=== PATIENT | female | born 1945 | race Caucasian/White ===

== ENCOUNTER 2017-09-14 09:56 | Inpatient (IN) | payer BC, MEDICARE ==
[~2017-09-14] VITALS: Ht 157.5 cm; Wt 145.4 kg
[~2017-09-14 09:56] MED LIST: ALBU18HF IH; ATOR40TA59 PO; CHOL4POW PO; GABA-586 PO; GLYB5TAB3 PO; HYDR-2762 PO; INSU100I27 SQ; LISI40TA PO; [UNRECOGNIZED DRUG - CODE] IV
--- NOTE | 2017-09-14 11:06 | RAD ---
EXAM: Chest, 2 views. HISTORY: Shortness of breath. COMPARISON: 04/21/2016. FINDINGS: Frontal and lateral views of the chest are obtained. There has been interval increase in small right greater than left pleural effusions and lower lobe atelectasis or infiltrate. There is stable diffuse interstitial prominence. There is stable enlargement of the cardiac silhouette. IMPRESSION: 1. Increased small right greater than left pleural effusions with lower lobe atelectasis or infiltrate. 2. Stable diffuse interstitial prominence and enlarged cardiac silhouette. Electronically signed by: Kallie Naranjo MD (09/14/2017 11:02 AM) [place] [id number]
[2017-09-14 11:44] LABS: CALCIUM 9.6 mg/dL (8.5-10.1); GFR 54.7
[2017-09-14] MEDS ORDERED: FUROSEMIDE 40 MG/4 ML VIAL IVP ONE (11:45)
[2017-09-14 11:47] LABS: POTASSIUM 4.9 mmol/L (3.5-5.1)
[2017-09-14 11:52] LABS: BASO # 0.1 x10^3/uL (0.0-0.2); BASO % 1 % (0-3); EOS % 0 % (0-3); HEMATOCRIT 39.6 % (36.0-47.0); HEMOGLOBIN 12.5 g/dL (12.0-15.5); LYMPH # 1.2 x10^3/uL (1.0-4.8); LYMPH % 10 % (24-48); MEAN CORPUSCULAR HEMOGLOBIN 30 pg (25-35); MEAN CORPUSCULAR HGB CONC 32 g/dL (31-37); MEAN CORPUSCULAR VOLUME 95 fL (79-100); MONO # 0.6 x10^3/uL (0.0-1.1); MONO % 5 % (0-9); NEUT % 84 % (31-73); PLATELET COUNT 237 x10^3/uL (140-400); RED BLOOD COUNT 4.17 x10^6/uL (3.50-5.40); RED CELL DISTRIBUTION WIDTH 15.3 % (11.5-14.5)
[2017-09-14] MEDS ORDERED: ACETAMINOPHEN 325 MG TABLET PO PRN (12:00)
[2017-09-14] MEDS ORDERED: ONDANSETRON PF 4 MG/2 ML VIAL. IV PRN (12:00)
[2017-09-14 13:11] VITALS: BP 113/79
--- NOTE | 2017-09-14 13:41 | EKG ---
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
[2017-09-14] MEDS ORDERED: FLUT1AER IH (14:14)
[2017-09-14] MEDS ORDERED: ALBU0.63 NEB (14:14)
[2017-09-14] MEDS ORDERED: FURO-69 PO (14:14)
[2017-09-14] MEDS ORDERED: DIGOXIN IV 500 MCG/2 ML AMPUL. IV ONE (14:15)
[2017-09-14] MEDS ORDERED: ALBUTEROL SULFATE 2.5 MG/3 ML NEBU. NEB PRN (14:45)
[2017-09-14 14:53] VITALS: BP 117/70
[2017-09-14 15:14] LABS: BILIRUBIN,URINE NEG (NEG); CLARITY,URINE CLEAR; COLOR,URINE YELLOW; GLUCOSE,URINE NEG (NEG)
[2017-09-14 15:15] LABS: BACTERIA,URINE 0 /HPF (0-FEW); NITRITE,URINE NEG (NEG); RBC,URINE OCC /HPF (0-2); SQUAMOUS EPITHELIAL CELL,UR FEW /LPF; UROBILINOGEN,URINE 0.2 mg/dL (0.2 mg/dL); WBC,URINE OCC /HPF (0-4)
[2017-09-14] MEDS: IPRATRPIUM/ALBUTEROL 0.5/2.5MG 3 ML NEBU. NEB SCH ×2 (15:26→21:24)
--- NOTE | 2017-09-14 15:28 | PHYS DOC ---
Past History Past Medical History: Anxiety, CHF, COPD, Diabetes, Hypertension Past Surgical History: No Surgical History Alcohol Use: None Drug Use: None Adult General Chief Complaint Chief Complaint: SHORTNESS OF BREATH HPI HPI Patient is a 71 year old F who presents with shortness of breath with exertion. Fatuma was on her way to a routine scheduled doctor's appointment this morning when she became severely short of breath after walking from her house to the car. At that time her and her decided to come to the emergency room after contacting their primary care doctor. She has had associated cough and worsening swelling of her lower extremities bilaterally. She has not been taking her Lasix regularly. She does not weigh herself regularly. She does use supplemental oxygen at baseline. It's unclear whether her shortness of breath is worsened when lying down because she sleeps in a recliner due to back pain. She has no other associated symptoms. She has no other exacerbating or relieving factors. Review of Systems Review of Systems Constitutional: Denies fever or chills [] Eyes: Denies change in visual acuity, redness, or eye pain [] HENT: Denies nasal congestion or sore throat [] Respiratory: Negative except history of present illness Cardiovascular: No additional information not addressed in HPI [] GI: Denies abdominal pain, nausea, vomiting, bloody stools or diarrhea [] : Denies dysuria or hematuria [] Musculoskeletal: Denies back pain or joint pain [] Integument: Denies rash or skin lesions [] Neurologic: Denies headache, focal weakness or sensory changes [] Endocrine: Denies polyuria or polydipsia [] All other systems were reviewed and found to be within normal limits, except as documented in this note. Family History Family History No pertinent family medical history was reported Current Medications Current Medications Current Medications Medications (Trade) Dose Ordered Sig/Romaine Start Time Stop Time Status Last Admin Dose Admin Furosemide (Lasix) 40 mg 1X ONCE 09/14/17 11:45 09/14/17 11:46 DC 09/14/17 11:40 40 MG Allergies Allergies Allergies Coded Allergies Type Severity Reaction Last Updated Verified Erythromycin Base Allergy Unknown 01/15/14 No metformin Allergy Unknown Diarrhea 01/15/14 Yes Physical Exam Physical Exam Constitutional: Well developed, well nourished, no acute distress, non-toxic appearance. [] Morbid obesity HENT: Normocephalic, atraumatic Eyes: EOMI, conjunctiva normal, no discharge. [] Neck: Normal range of motion, no tenderness, supple, no stridor. [] Cardiovascular:Heart rate regular rhythm, diminished breath sounds bilaterally Lungs & Thorax: Bilateral breath sounds clear to auscultation [] moderate pitting edema in extremities bilaterally Abdomen: Bowel sounds normal, soft, no tenderness, no masses, no pulsatile masses. [] Skin: Warm, dry, no erythema, no rash. [] Moderate dry skin and lower extremities without skin breakdown Extremities: No tenderness, no cyanosis, no clubbing, ROM intact Neurologic: Alert and oriented X 3, normal motor function, normal sensory function, no focal deficits noted. [] Psychologic: Affect normal, judgement normal, mood normal. Current Patient Data Vital Signs Vital Signs Date Time Temp Pulse Resp B/P (MAP) Pulse Ox O2 Delivery O2 Flow Rate FiO2 09/14/17 14:53 97.7 118 20 117/70 (86) 96 Nasal Cannula 2.0 Lab Results Laboratory Tests Test 09/14/17 11:24 09/14/17 14:30 White Blood Count 12.0 x10^3/uL (4.0-11.0) H Red Blood Count 4.17 x10^6/uL (3.50-5.40) Hemoglobin 12.5 g/dL (12.0-15.5) Hematocrit 39.6 % (36.0-47.0) Mean Corpuscular Volume 95 fL (79-100) Mean Corpuscular Hemoglobin 30 pg (25-35) Mean Corpuscular Hemoglobin Concent 32 g/dL (31-37) Red Cell Distribution Width 15.3 % (11.5-14.5) H Platelet Count 237 x10^3/uL (140-400) Neutrophils (%) (Auto) 84 % (31-73) H Lymphocytes (%) (Auto) 10 % (24-48) L Monocytes (%) (Auto) 5 % (0-9) Eosinophils (%) (Auto) 0 % (0-3) Basophils (%) (Auto) 1 % (0-3) Neutrophils # (Auto) 10.0 x10^3uL (1.8-7.7) H Lymphocytes # (Auto) 1.2 x10^3/uL (1.0-4.8) Monocytes # (Auto) 0.6 x10^3/uL (0.0-1.1) Eosinophils # (Auto) 0.0 x10^3/uL (0.0-0.7) Basophils # (Auto) 0.1 x10^3/uL (0.0-0.2) D-Dimer (Kayla) 0.69 mg/L (0.00-0.50) H Sodium Level 142 mmol/L (136-145) Potassium Level 4.9 mmol/L (3.5-5.1) Chloride Level 100 mmol/L (98-107) Carbon Dioxide Level 36 mmol/L (21-32) H Anion Gap 6 (6-14) Blood Urea Nitrogen 13 mg/dL (7-20) Creatinine 1.0 mg/dL (0.6-1.0) Estimated GFR (Cockcroft-Gault) 54.7 Glucose Level 209 mg/dL (70-99) H Calcium Level 9.6 mg/dL (8.5-10.1) Magnesium Level 1.9 mg/dL (1.8-2.4) Creatine Kinase 40 U/L (26-192) Troponin I Quantitative < 0.017 ng/mL (0-0.055) Urine Collection Type Unknown Urine Color Yellow Urine Clarity Clear Urine pH 5.0 Urine Specific [place] <=1.005 Urine Protein Neg (NEG-TRACE) Urine Glucose (UA) Neg mg/dL (NEG) Urine Ketones (Stick) Neg mg/dL (NEG) Urine Blood Neg (NEG) Urine Nitrite Neg (NEG) Urine Bilirubin Neg (NEG) Urine Urobilinogen Dipstick 0.2 mg/dL (0.2 mg/dL) Urine Leukocyte Esterase Neg (NEG) Urine RBC Occ /HPF (0-2) Urine WBC Occ /HPF (0-4) Urine Squamous Epithelial Cells Few /LPF Urine Bacteria 0 /HPF (0-FEW) EKG EKG Normal sinus rhythm Radiology/Procedures Radiology/Procedures Chest x-ray - moderate bilateral pleural effusions noted Course & Med Decision Making Course & Med Decision Making Pertinent Labs and Imaging studies reviewed. (See chart for details) Dr. Gregg was contacted by phone. Her case was reviewed including history, physical/vital signs, labs and imaging. Admission was recommended. Dragon Disclaimer Dragon Disclaimer This electronic medical record was generated, in whole or in part, using a voice recognition dictation system. Departure Departure: Impression: Primary Impression: Acute exacerbation of CHF (congestive heart failure) Disposition: ADMITTED INPATIENT Admitting Physician: Garrett Gregg Condition: STABLE Referrals: GARRETT GREGG MD (PCP) Problem Qualifiers Primary Impression: Acute exacerbation of CHF (congestive heart failure) Heart failure type: unspecified Qualified Codes: I50.9 - Heart failure, unspecified GARRETT DOMÍNGUEZ MD Sep 14, 2017 15:28
--- NOTE | 2017-09-14 16:16 | RAD ---
Indication: Abdominal pain when eating. TECHNIQUE: CT abdomen and pelvis without IV contrast with multiplanar reformats. COMPARISON: None FINDINGS: Limited exam due to lack of IV contrast. Heart is normal in size. Trace left and small right pleural effusion noted. Consolidation is seen in the bilateral lower lobes. Noncontrast appearance of the liver, spleen, pancreas, adrenals within normal limits. Status post cholecystectomy. Multiple nonobstructing right renal stones noted. No hydronephrosis. No retroperitoneal or pelvic adenopathy. No sliding hiatal hernia. No bowel obstruction. Mild sigmoid diverticulosis without diverticulitis. Normal appendix. Inflammatory changes are seen in the abdominal pannus. Bladder is decompressed however shows no radiopaque stone. Status post hysterectomy. No solid adnexal lesions. No ascites or free pelvic fluid. Mild diffuse atherosclerotic disease of the abdominal aorta noted. No suspicious bony lesion. IMPRESSION: Limited study due to lack of IV contrast. 1. No hernia or bowel obstruction. 2. Multiple nonobstructing right renal stone. 3. Small right pleural effusion. Bilateral lower lobe consolidative opacities may be from subsegmental atelectasis or pneumonia. 4. Inflammatory changes in the lower abdominal wall pannus may suggest panniculitis. Clinically correlate. Electronically signed by: Elmer Cunningham DO (09/14/2017 4:13 PM) [id number]
--- NOTE | 2017-09-14 17:25 | CARD ---
MR#: [id number] Date of Study: 09/14/2017 Ordering Physician: GARRETT FLOWERS, Referring Physician: GARRETT FLOWERS, Tech: Cyndi Corbett ZOIE APPROVED REPORT EXAM: Two-dimensional and M-mode echocardiogram with Doppler and color Doppler. Other Information Quality : Good INDICATION Congestive Heart Failure 2D DIMENSIONS RVDd2.9 (2.9-3.5cm)Left Atrium(2D)4.6 (1.6-4.0cm) IVSd1.1 (0.7-1.1cm)Aortic Root(2D)2.9 (2.0-3.7cm) LVDd5.0 (3.9-5.9cm)LVOT Diameter2.3 (1.8-2.4cm) PWd1.1 (0.7-1.1cm)LVDs3.7 (2.5-4.0cm) FS (%) 25.9 %SV60.4 ml LVEF(%)50.6 (>50%) Aortic Valve AoV Peak Syd.113.2cm/sAoV VTI17.3cm AO Peak GR.5.1mmHgLVOT Peak Syd.122.2cm/s LVOT VTI 21.09cmAO Mean GR.3mmHg MAYRA (VMAX)4.43jp5CUX (VTI)4.92cm2 Mitral Valve MV E Yusdoudf517.7cm/sMV DECEL HVMB205ru MV A Velocity1.1cm/sE/A Ratio92.5 Tricuspid Valve TR P. Eeilyoya902wf/sRAP [id number] TR Peak Gr.91jkMfIPPQ59qlTo LEFT VENTRICLE The left ventricle is normal size. There is normal left ventricular wall thickness. Mild left ventric ular systolic dysfunction. The Ejection Fraction is 45%. There is normal LV segmental wall motion. RIGHT VENTRICLE The right ventricle is normal size. The right ventricular systolic function is normal. ATRIA The left atrium is mildly dilated. The right atrium size is normal. The interatrial septum is intact with no evidence for an atrial septal defect or patent foramen ovale as noted on 2-D or Doppler imagi ng. AORTIC VALVE The aortic valve is calcified but opens well. Doppler and Color Flow revealed no significant aortic r egurgitation. There is no significant aortic valvular stenosis. MITRAL VALVE The mitral valve is calcified but opens well. There is no evidence of mitral valve prolapse. There is no mitral valve stenosis. Doppler and Color-flow revealed mild mitral regurgitation. TRICUSPID VALVE The tricuspid valve is normal in structure and function. Doppler and Color Flow revealed mild to mode rate tricuspid regurgitation. There is moderate pulmonary hypertension. The PA pressure was estimated at 55 mmHg. There is no tricuspid valve stenosis. PULMONIC VALVE The pulmonic valve is not well visualized. Doppler and Color Flow revealed no pulmonic valvular regur gitation. There is no pulmonic valvular stenosis. GREAT VESSELS The aortic root is normal in size. The ascending aorta is normal in size. The IVC is dilated. PERICARDIAL EFFUSION There is no evidence of significant pericardial effusion. Critical Notification Critical Value: No <Conclusion> Mild left ventricular systolic dysfunction. The Ejection Fraction is 45%. There is normal LV segmental wall motion. Mild mitral regurgitation. Mild to moderate tricuspid regurgitation. There is moderate pulmonary hypertension. The PA pressure was estimated at 55 mmHg. There is no evidence of significant pericardial effusion. Signed by : Al Menon, Electronically Approved : 09/14/2017 17:25:26
[2017-09-14] MEDS: cefTRIAXone IV Push 1 GM VIAL. IVP SCH (17:39)
[2017-09-14] MEDS: glyBURIDE 5 MG TABLET PO SCH (17:39)
[2017-09-14] MEDS: ENOXAPARIN ** NOTE DOSE ** SYRINGE SQ SCH (17:40)
[2017-09-14 18:54] VITALS: BP 119/59
[2017-09-14] MEDS ORDERED: SODIUM CHLORIDE 0.65% NASAL SPRAY 45ML BOTTLE. NS PRN (20:15)
[2017-09-14] MEDS: LACTOBACILLUS RHAMNOSUS GG 1 CAPSULE. PO SCH (21:05)
[2017-09-14] MEDS: GABAPENTIN 300 MG CAPSULE. PO SCH (21:05)
[2017-09-14] MEDS: ATORVASTATIN CALCIUM 20 MG TABLET PO SCH (21:05)
[2017-09-14] MEDS: AZITHROMYCIN 500 MG in IV NORMAL SALINE 250ML 250 ML IV SCH (21:05)
[2017-09-14] MEDS: BUDESONIDE 0.5 MG/2 ML NEBU NEB SCH (21:24)
[2017-09-14] MEDS: INSULIN DETEMIR 300 UNITS/3 ML INSULN.PEN. SQ SCH (21:30)
[2017-09-14 22:45] VITALS: BP 102/65
[2017-09-15] MEDS ORDERED: IOHEXOL 300 MG/ML 75 ML VIAL. IV ONE ×2 (03:00→08:45)
[2017-09-15] MEDS ORDERED: CONTRAST GIVEN MC PRN (03:15)
[2017-09-15 05:00] VITALS: BP 125/82
[2017-09-15] MEDS: ENOXAPARIN ** NOTE DOSE ** SYRINGE SQ SCH ×2 (06:02→16:34)
[2017-09-15] MEDS: IPRATRPIUM/ALBUTEROL 0.5/2.5MG 3 ML NEBU. NEB SCH ×4 (06:04→20:29)
[2017-09-15 06:55] LABS: BASO # 0.1 x10^3/uL (0.0-0.2); BASO % 1 % (0-3); EOS # 0.1 x10^3/uL (0.0-0.7); EOS % 1 % (0-3); HEMATOCRIT 38.5 % (36.0-47.0); HEMOGLOBIN 12.2 g/dL (12.0-15.5); LYMPH # 1.6 x10^3/uL (1.0-4.8); LYMPH % 15 % (24-48); MEAN CORPUSCULAR HEMOGLOBIN 30 pg (25-35); MEAN CORPUSCULAR HGB CONC 32 g/dL (31-37); MEAN CORPUSCULAR VOLUME 94 fL (79-100); MONO # 0.7 x10^3/uL (0.0-1.1); MONO % 7 % (0-9); NEUT # 8.2 x10^3uL (1.8-7.7); NEUT % 77 % (31-73); PLATELET COUNT 237 x10^3/uL (140-400); RED BLOOD COUNT 4.08 x10^6/uL (3.50-5.40); RED CELL DISTRIBUTION WIDTH 15.2 % (11.5-14.5); WHITE BLOOD COUNT 10.7 x10^3/uL (4.0-11.0)
[2017-09-15 07:01] LABS: CALCIUM 9.5 mg/dL (8.5-10.1); CREATININE 0.9 mg/dL (0.6-1.0); GFR 61.7; POTASSIUM 3.5 mmol/L (3.5-5.1)
--- NOTE | 2017-09-15 07:13 | EKG ---
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
[2017-09-15 07:27] VITALS: BP 107/55
[2017-09-15] MEDS ORDERED: DIGOXIN IV 500 MCG/2 ML AMPUL. IV ONE (08:00)
[2017-09-15] MEDS: FUROSEMIDE 40 MG/4 ML VIAL IVP SCH (08:16)
[2017-09-15] MEDS: LACTOBACILLUS RHAMNOSUS GG 1 CAPSULE. PO SCH ×2 (08:16→20:47)
[2017-09-15] MEDS: predniSONE 20 MG TABLET PO SCH (08:16)
[2017-09-15] MEDS: GABAPENTIN 300 MG CAPSULE. PO SCH ×2 (08:16→20:47)
[2017-09-15] MEDS: glyBURIDE 5 MG TABLET PO SCH ×2 (08:16→16:34)
[2017-09-15] MEDS: CHOLESTYRAMINE/ASPARTAME 4 GM PACKET PO SCH ×2 (08:16→08:19)
[2017-09-15] MEDS ORDERED: LISINOPRIL 20 MG TABLET PO SCH (09:00)
[2017-09-15] MEDS: METOPROLOL TART IMMED RELEASE 25 MG TABLET PO SCH ×4 (09:45→23:45)
--- NOTE | 2017-09-15 09:46 | PDOC2 ---
CONSULT Date of Admission DATE: 09/15/17 TIME: 09:12 Reason for Consult: atrial fibrillation with RVR, chf History of Present Illness Ms Olmstead is a 71 year old female who presented with complaints of increased dyspnea. She was noted to be in atrial fibrillation with RVR so consult was called. She reports increasing dyspnea over the last 1 month with normal activities. She normally wears oxygen at 2 liters but over the last 2 weeks has gradually increased her home O2 to 5 liters. She normally sleeps in a recliner due to back pain so is unable to report any orthopnea symptoms. She was walking out to her car yesterday and became severely short of breath after 20 feet. She had an appointment with her PCP but due to the severity of her shortness of breath her brought her to the ED. She was found to be in atrial fibrillation with heart rates in the 150s but denies any palpitations. She reports increased edema over the last several weeks. The ED documentations notes that she had not been taking her lasix as prescribed. She denies chest pain or discomforts. She denies lightheadedness or syncope. She denies cough, fever or chills. Past Medical History Echo 2016 LVEF 50-55% Mild LVH Mild MR and TR PAS 48 mmHg MPI 2016 no evidence of ischemia or infarct EF 50% Cardiovascular: CHF, HTN, hyperipidemia, Other (peripheral vascular disease) Pulmonary: Asthma, COPD CENTRAL NERVOUS SYSTEM: Periperal neuropathy GI: Irritable bowel disease Musculoskeletal: Osteoarthritis, Other (back pain) Endocrine: Diabetes Dermatology: Other (skin cancer) Past Surgical History skin cancer removal, hysterectomy, tonsillectomy Family History unknown Social History prior smoker, quit >10 years ago, no significant ETOH, no illicit drug use Current Medications Current Medications Furosemide (Lasix) 40 mg 1X ONCE IVP Last administered on 09/14/17at 11:40; Start 09/14/17 at 11:45; Stop 09/14/17 at 11:46; Status DC Ondansetron HCl (Zofran) 4 mg PRN Q4HRS PRN IV NAUSEA/VOMITING; Start 09/14/17 at 12:00; Stop 09/15/17 at 11:59 Acetaminophen (Tylenol) 650 mg PRN Q4HRS PRN PO FEVER; Start 09/14/17 at 12:00 ; Stop 09/15/17 at 11:59 Albuterol/ Ipratropium (Duoneb) 3 ml RTQID NEB Last administered on 09/15/17 06:04; Start 09/14/17 at 16:00 Furosemide (Lasix) 40 mg DAILY IVP Last administered on 09/15/17at 08:16; Start 09/15/17 at 09:00 Digoxin (Lanoxin) 500 mcg 1X ONCE IV Last administered on 09/14/17at 14:19; Start 09/14/17 at 14:15; Stop 09/14/17 at 14:16; Status DC Cholestyramine Resin (Questran Light) 4 gm DAILY PO ; Start 09/15/17 at 09:00 Gabapentin (Neurontin) 300 mg BID PO Last administered on 09/15/17at 08:16; Start 09/14/17 at 21:00 Glyburide (Diabeta) 10 mg BIDWMEALS PO Last administered on 09/15/17at 08:16; Start 09/14/17 at 17:00 Insulin Detemir (Levemir) 25 units HS SQ Last administered on 09/14/17at 21:30; Start 09/14/17 at 21:00 Albuterol Sulfate (Ventolin) 2.5 mg PRN Q4HRS PRN NEB SHORTNESS OF BREATH; Start 09/14/17 at 14:45 Atorvastatin Calcium (Lipitor) 40 mg QHS PO Last administered on 09/14/17at 21: 05; Start 09/14/17 at 21:00 Budesonide (Pulmicort) 0.5 mg RTBID NEB Last administered on 09/14/17at 21:24; Start 09/14/17 at 20:00 Lisinopril (Prinivil) 40 mg DAILY PO ; Start 09/15/17 at 09:00 Ceftriaxone Sodium 1 gm/ Sodium Chloride 50 ml @ 100 mls/hr Q24H IV ; Start at 14:45; Status UNV Ceftriaxone Sodium (Rocephin) 1 gm Q24H IVP Last administered on 09/14/17at 17: 39; Start 09/14/17 at 15:00 Enoxaparin Sodium (Lovenox 150mg Syringe) 150 mg Q12H SQ Last administered on at 06:02; Start 09/14/17 at 17:00 Azithromycin 500 mg/Sodium Chloride 250 ml @ 250 mls/hr Q24H IV Last administered on 09/14/17at 21:05; Start 09/14/17 at 19:30 Prednisone (Prednisone) 20 mg DAILY PO Last administered on 09/15/17at 08:16; Start 09/15/17 at 09:00 Lactobacillus Rhamnosus (Culturelle) 1 cap BID PO Last administered on at 08:16; Start 09/14/17 at 21:00 Sodium Chloride (Saline Mist Nasal) 1 mario PRN Q1HR PRN NS NASAL CONGESTION Last administered on 09/14/17at 21:03; Start 09/14/17 at 20:15 Iohexol (Omnipaque 300 Mg/ml) 75 ml 1X ONCE IV Last administered on 09/15/17at 05:17; Start 09/15/17 at 03:00; Stop 09/15/17 at 03:41; Status DC Info (Do NOT chart on this entry -- for MONITORING) 1 each PRN DAILY PRN MC SEE COMMENTS; Start 09/15/17 at 03:15; Stop 09/17/17 at 03:14 Digoxin (Lanoxin) 500 mcg 1X ONCE IV Last administered on 09/15/17at 07:56; Start 09/15/17 at 08:00; Stop 09/15/17 at 08:02; Status DC Iohexol (Omnipaque 300 Mg/ml) 75 ml 1X ONCE IV ; Start 09/15/17 at 08:45; Stop 09/15/17 at 08:46; Status DC Active Scripts Active Reported Breo Ellipta 100-25 Mcg Inh (Fluticasone/Vilanterol) 1 Each Aer.pow.ba 1 Puff IH DAILY LAST DOSE GIVEN: DATE: TIME: NEXT DOSE DUE: DATE: TIME: Albuterol Sulfate Neb Soln (Albuterol Sulfate) 0.63 Mg/3 Ml Vial.neb 1 Vial NEB Q4HRS PRN LAST DOSE GIVEN: DATE: TIME: NEXT DOSE DUE: DATE: TIME: Lasix (Furosemide) 20 Mg Tablet 1 Tab PO DAILY LAST DOSE GIVEN: DATE: TIME: NEXT DOSE DUE: DATE: TIME: Levemir Flextouch (Insulin Detemir) 100 Unit/1 Ml Insuln.pen 25 Unit SQ HS LAST DOSE GIVEN: DATE: TIME: NEXT DOSE DUE: DATE: TIME: Gabapentin 300 Mg Capsule 300 Mg PO BID LAST DOSE GIVEN: DATE: TIME: NEXT DOSE DUE: DATE: TIME: Lisinopril 40 Mg Tablet 40 Mg PO DAILY LAST DOSE GIVEN: DATE: TIME: NEXT DOSE DUE: DATE: TIME: Atorvastatin Calcium 40 Mg Tablet 40 Mg PO QHS LAST DOSE GIVEN: DATE: TIME: NEXT DOSE DUE: DATE: TIME: Glyburide 5 Mg Tablet 10 Mg PO BIDWMEALS LAST DOSE GIVEN: DATE: TIME: NEXT DOSE DUE: DATE: TIME: Cholestyramine Light Packet (Cholestyramine/Aspartame) 4 Gm Powd.pack 4 Gm PO DAILY LAST DOSE GIVEN: DATE: TIME: NEXT DOSE DUE: DATE: TIME: Allergies: Coded Allergies: erythromycin base (Unverified Allergy, Unknown, 01/15/14) metformin (Verified Allergy, Unknown, Diarrhea, 01/15/14) Review of System as per HPI or negative General: Alert, Oriented X3, Cooperative, No acute distress HEENT: Atraumatic, EOMI Lungs: Other (decreased with few basilar crackles bilaterally) Heart: Other (Irregular rate and rhythm, no S3/S4, no significant M/C/R) Abdomen: Normal bowel sounds, Soft, Other (obese) Extremities: Other (chronic edema bilaterally, currently left > right, skin changes consistent with chronic venous insufficiency) Neuro: Normal speech Psych/Mental Status: Mental status NL, Mood NL VITALS Vital Signs Date Time Temp Pulse Resp B/P (MAP) Pulse Ox O2 Delivery O2 Flow Rate FiO2 09/15/17 07:56 123 107/55 09/15/17 07:27 20 93 Nasal Cannula 2.0 09/15/17 05:00 97.6 Labs Laboratory Tests Test 09/14/17 11:24 09/14/17 14:30 09/14/17 16:28 09/14/17 20:24 White Blood Count 12.0 x10^3/uL (4.0-11.0) Red Blood Count 4.17 x10^6/uL (3.50-5.40) Hemoglobin 12.5 g/dL (12.0-15.5) Hematocrit 39.6 % (36.0-47.0) Mean Corpuscular Volume 95 fL (79-100) Mean Corpuscular Hemoglobin 30 pg (25-35) Mean Corpuscular Hemoglobin Concent 32 g/dL (31-37) Red Cell Distribution Width 15.3 % (11.5-14.5) Platelet Count 237 x10^3/uL (140-400) Neutrophils (%) (Auto) 84 % (31-73) Lymphocytes (%) (Auto) 10 % (24-48) Monocytes (%) (Auto) 5 % (0-9) Eosinophils (%) (Auto) 0 % (0-3) Basophils (%) (Auto) 1 % (0-3) Neutrophils # (Auto) 10.0 x10^3uL (1.8-7.7) Lymphocytes # (Auto) 1.2 x10^3/uL (1.0-4.8) Monocytes # (Auto) 0.6 x10^3/uL (0.0-1.1) Eosinophils # (Auto) 0.0 x10^3/uL (0.0-0.7) Basophils # (Auto) 0.1 x10^3/uL (0.0-0.2) D-Dimer (Kayla) 0.69 mg/L (0.00-0.50) Sodium Level 142 mmol/L (136-145) Potassium Level 4.9 mmol/L (3.5-5.1) Chloride Level 100 mmol/L (98-107) Carbon Dioxide Level 36 mmol/L (21-32) Anion Gap 6 (6-14) Blood Urea Nitrogen 13 mg/dL (7-20) Creatinine 1.0 mg/dL (0.6-1.0) Estimated GFR (Cockcroft-Gault) 54.7 Glucose Level 209 mg/dL (70-99) Calcium Level 9.6 mg/dL (8.5-10.1) Magnesium Level 1.9 mg/dL (1.8-2.4) Creatine Kinase 40 U/L (26-192) Troponin I Quantitative < 0.017 ng/mL (0-0.055) Urine Collection Type Unknown Urine Color Yellow Urine Clarity Clear Urine pH 5.0 Urine Specific [place] <=1.005 Urine Protein Neg (NEG-TRACE) Urine Glucose (UA) Neg mg/dL (NEG) Urine Ketones (Stick) Neg mg/dL (NEG) Urine Blood Neg (NEG) Urine Nitrite Neg (NEG) Urine Bilirubin Neg (NEG) Urine Urobilinogen Dipstick 0.2 mg/dL (0.2 mg/dL) Urine Leukocyte Esterase Neg (NEG) Urine RBC Occ /HPF (0-2) Urine WBC Occ /HPF (0-4) Urine Squamous Epithelial Cells Few /LPF Urine Bacteria 0 /HPF (0-FEW) Glucose (Fingerstick) 131 mg/dL (70-99) 105 mg/dL (70-99) Test 09/15/17 06:30 09/15/17 06:58 White Blood Count 10.7 x10^3/uL (4.0-11.0) Red Blood Count 4.08 x10^6/uL (3.50-5.40) Hemoglobin 12.2 g/dL (12.0-15.5) Hematocrit 38.5 % (36.0-47.0) Mean Corpuscular Volume 94 fL (79-100) Mean Corpuscular Hemoglobin 30 pg (25-35) Mean Corpuscular Hemoglobin Concent 32 g/dL (31-37) Red Cell Distribution Width 15.2 % (11.5-14.5) Platelet Count 237 x10^3/uL (140-400) Neutrophils (%) (Auto) 77 % (31-73) Lymphocytes (%) (Auto) 15 % (24-48) Monocytes (%) (Auto) 7 % (0-9) Eosinophils (%) (Auto) 1 % (0-3) Basophils (%) (Auto) 1 % (0-3) Neutrophils # (Auto) 8.2 x10^3uL (1.8-7.7) Lymphocytes # (Auto) 1.6 x10^3/uL (1.0-4.8) Monocytes # (Auto) 0.7 x10^3/uL (0.0-1.1) Eosinophils # (Auto) 0.1 x10^3/uL (0.0-0.7) Basophils # (Auto) 0.1 x10^3/uL (0.0-0.2) Sodium Level 143 mmol/L (136-145) Potassium Level 3.5 mmol/L (3.5-5.1) Chloride Level 101 mmol/L (98-107) Carbon Dioxide Level 36 mmol/L (21-32) Anion Gap 6 (6-14) Blood Urea Nitrogen 11 mg/dL (7-20) Creatinine 0.9 mg/dL (0.6-1.0) Estimated GFR (Cockcroft-Gault) 61.7 Glucose Level 119 mg/dL (70-99) Calcium Level 9.5 mg/dL (8.5-10.1) Glucose (Fingerstick) 107 mg/dL (70-99) Images EKG - atrial fibrillation with occ ventricular ectopy, non specific st/t abn, no acute ischemic changes Echo 09/14/17 Mild left ventricular systolic dysfunction. The Ejection Fraction is 45%. There is normal LV segmental wall motion. Mild mitral regurgitation. Mild to moderate tricuspid regurgitation. There is moderate pulmonary hypertension. The PA pressure was estimated at 55 mmHg. There is no evidence of significant pericardial effusion. CXR - IMPRESSION: 1. Increased small right greater than left pleural effusions with lower lobe atelectasis or infiltrate. 2. Stable diffuse interstitial prominence and enlarged cardiac silhouette. CT abd IMPRESSION: Limited study due to lack of IV contrast. 1. No hernia or bowel obstruction. 2. Multiple nonobstructing right renal stone. 3. Small right pleural effusion. Bilateral lower lobe consolidative opacities may be from subsegmental atelectasis or pneumonia. 4. Inflammatory changes in the lower abdominal wall pannus may suggest panniculitis. Clinically correlate. CT chest pending Assessment/Plan 1. Acute on chronic systolic HF - continue lasix. 2. atrial fibrillation with RVR - unknown duration. likely contributing to decompensation in HF and LV function. Rate control and will need anticoagulation as [id number] = 5. After discharge suggest MCT for 1 month for af burden prior to discussion of antiarrhythmic vs ECV. would also recommend sleep study as outpatient. 3. COPD - on home o2 4. possible PNA - abx per PCP 5. hypertension - well controlled. Decrease lisinopril to allow for rate control with beta marco antonio. 6. hyperlipidemia - lipids pending, continue statin 7. diabetes mellitus - mgmt per PCP 8. CKD stage III - Cr currently normal. 9. morbid obesity Problems: AI PALENCIA APRN Sep 15, 2017 09:46
--- NOTE | 2017-09-15 09:49 | PN ---
DATE: 09/14/2017 SUBJECTIVE: The patient was admitted yesterday with dyspnea, had atrial fibrillation with RVR, has been receiving IV digoxin by Dr. Shaw, this is to help bring down her heart rate somewhat. She is still in A-fib, which is new onset. Cardiac enzymes so far have been negative. She also may have a touch of pneumonia and is receiving IV antibiotic coverage for research. PHYSICAL EXAMINATION: GENERAL: The patient is alert and oriented. LUNGS: Diminished, but clear. CARDIOVASCULAR: Regular rate and rhythm. EXTREMITIES: No clubbing, cyanosis, +1 pitting edema. NEUROLOGIC: Intact. LABORATORY DATA: Otherwise, labs are basically stable. Blood sugar elevated. IMPRESSION: Atrial fibrillation with rapid ventricular response; pneumonia, unspecified etiology, community acquired; type 2 diabetes; and morbid obesity. PLAN: continued to be monitored, continue on her anticoagulation therapy. Make further evaluation on her as indicated. GARRETT FLOWERS MD DR: LITA/lula JOB#: [id number] / [id number]
[2017-09-15 11:07] VITALS: BP 113/75
[2017-09-15] MEDS: POTASSIUM CHLORIDE 20 MEQ TABLET.ER. PO SCH (11:11)
[2017-09-15] MEDS: BUDESONIDE 0.5 MG/2 ML NEBU NEB SCH ×2 (11:44→20:29)
[2017-09-15 14:00] VITALS: BP 151/68
--- NOTE | 2017-09-15 14:55 | RAD ---
CTA chest with contrast 09/15/2017 Clinical indication: Shortness of breath. TECHNIQUE: Multiple CTA images of the chest were obtained following the intravenous and ministration of 100 mL Omnipaque 300. MIPS were obtained of the chest. *One or more of the following individualized dose reduction techniques were utilized for this examination: 1. Automated exposure control. 2. Adjustment of the mA and/or kV according to patient size. 3. Use of iterative reconstruction technique. FINDINGS: Mild cardiomegaly without pericardial effusion. Coronary artery calcifications are noted. Evaluation of the subsegmental pulmonary arterial branches is limited due to body habitus. No central or major segmental pulmonary arterial filling defect. No axillary, mediastinal or hilar lymphadenopathy. There are small bilateral pleural effusions with complete right lower lobe and partial atelectasis of the left lower lobe and right middle lobe. No pneumothorax. There are no destructive osseous lesions. Limited images of the upper abdomen: Suggestion of nodular contour to the surface of the liver. Prior cholecystectomy. IMPRESSION: 1. Limited evaluation of subsegmental pulmonary arteries due to body habitus. No central or major segmental pulmonary artery filling defect to suggest pulmonary embolism. 2. Small bilateral pleural effusions with bibasilar atelectasis. 3. Suggestion of a nodular contour to the surface of the liver which may represent chronic liver disease (cirrhosis). Clinical correlation is recommended. Electronically signed by: Nico Roberts MD (09/15/2017 2:52 PM) [id number]
[2017-09-15] MEDS: cefTRIAXone IV Push 1 GM VIAL. IVP SCH (16:29)
--- NOTE | 2017-09-15 16:40 | RAD ---
Bilateral lower extremity venous ultrasound, 09/15/2017 : History: Bilateral leg edema and redness, shortness of breath Duplex evaluation of the deep veins in the lower extremities was performed including grayscale, color-flow and spectral Doppler analysis. The femoral and popliteal veins demonstrate normal compressibility and normal responses to distal augmentation maneuvers. Color imaging of those vessels shows no evidence of intraluminal clot. The visualized deep veins in both calves are patent. IMPRESSION: There is no sonographic evidence of deep vein thrombosis in either lower extremity.
[2017-09-15 18:26] VITALS: BP 143/66
[2017-09-15] MEDS: AZITHROMYCIN 500 MG in IV NORMAL SALINE 250ML 250 ML IV SCH (18:27)
[2017-09-15] MEDS: ATORVASTATIN CALCIUM 20 MG TABLET PO SCH (20:47)
[2017-09-15] MEDS: INSULIN DETEMIR 300 UNITS/3 ML INSULN.PEN. SQ SCH (20:55)
[2017-09-15 23:47] VITALS: BP 111/60
[2017-09-16 03:19] VITALS: BP 109/61
[2017-09-16] MEDS: IPRATRPIUM/ALBUTEROL 0.5/2.5MG 3 ML NEBU. NEB SCH ×4 (05:16→21:43)
[2017-09-16] MEDS: METOPROLOL TART IMMED RELEASE 25 MG TABLET PO SCH ×4 (05:28→23:50)
[2017-09-16] MEDS: ENOXAPARIN ** NOTE DOSE ** SYRINGE SQ SCH ×2 (05:28→16:45)
[2017-09-16 05:47] VITALS: BP 111/59
[2017-09-16] MEDS: CHOLESTYRAMINE/ASPARTAME 4 GM PACKET PO SCH (09:00)
[2017-09-16] MEDS: FUROSEMIDE 40 MG/4 ML VIAL IVP SCH (09:23)
[2017-09-16] MEDS: glyBURIDE 5 MG TABLET PO SCH ×2 (09:24→16:44)
[2017-09-16] MEDS: GABAPENTIN 300 MG CAPSULE. PO SCH ×2 (09:24→20:05)
[2017-09-16] MEDS: POTASSIUM CHLORIDE 20 MEQ TABLET.ER. PO SCH (09:24)
[2017-09-16] MEDS: predniSONE 20 MG TABLET PO SCH (09:24)
[2017-09-16] MEDS: LACTOBACILLUS RHAMNOSUS GG 1 CAPSULE. PO SCH ×2 (09:24→20:05)
[2017-09-16] MEDS: BUDESONIDE 0.5 MG/2 ML NEBU NEB SCH ×2 (09:56→21:47)
[2017-09-16 10:16] VITALS: BP 117/70
[2017-09-16] MEDS: AZITHROMYCIN 250 MG TABLET. PO SCH (16:44)
[2017-09-16] MEDS: cefTRIAXone IV Push 1 GM VIAL. IVP SCH (16:44)
[2017-09-16 18:16] VITALS: BP 134/73
[2017-09-16] MEDS: ATORVASTATIN CALCIUM 20 MG TABLET PO SCH (20:05)
[2017-09-16] MEDS: INSULIN DETEMIR 300 UNITS/3 ML INSULN.PEN. SQ SCH (20:10)
[2017-09-16 23:52] VITALS: BP 128/62
[2017-09-17] MEDS: ENOXAPARIN ** NOTE DOSE ** SYRINGE SQ SCH (05:35)
[2017-09-17] MEDS: METOPROLOL TART IMMED RELEASE 25 MG TABLET PO SCH (05:36)
[2017-09-17] MEDS: IPRATRPIUM/ALBUTEROL 0.5/2.5MG 3 ML NEBU. NEB SCH ×4 (05:53→20:34)
[2017-09-17 06:39] LABS: CALCIUM 9.1 mg/dL (8.5-10.1); CREATININE 0.9 mg/dL (0.6-1.0); GFR 61.7; POTASSIUM 3.9 mmol/L (3.5-5.1)
[2017-09-17 06:49] LABS: HEMATOCRIT 37.5 % (36.0-47.0); HEMOGLOBIN 11.9 g/dL (12.0-15.5); RED BLOOD COUNT 3.96 x10^6/uL (3.50-5.40); RED CELL DISTRIBUTION WIDTH 15.5 % (11.5-14.5); WHITE BLOOD COUNT 8.6 x10^3/uL (4.0-11.0)
[2017-09-17 07:01] VITALS: BP 115/65
[2017-09-17] MEDS: GABAPENTIN 300 MG CAPSULE. PO SCH ×2 (08:04→20:58)
[2017-09-17] MEDS: glyBURIDE 5 MG TABLET PO SCH ×2 (08:04→17:52)
[2017-09-17] MEDS: predniSONE 20 MG TABLET PO SCH (08:04)
[2017-09-17] MEDS: POTASSIUM CHLORIDE 20 MEQ TABLET.ER. PO SCH (08:04)
[2017-09-17] MEDS: FUROSEMIDE 40 MG/4 ML VIAL IVP SCH (08:05)
[2017-09-17] MEDS: CHOLESTYRAMINE/ASPARTAME 4 GM PACKET PO SCH (09:00)
[2017-09-17] MEDS: BUDESONIDE 0.5 MG/2 ML NEBU NEB SCH ×2 (09:53→20:34)
--- NOTE | 2017-09-17 11:55 | PDOC ---
PROGRESS NOTES Assessment 1. Atrial fibrillation with rapid ventricular response: Heart rate continues to be elevated. Change metoprolol to Cardizem CD 120 mg daily and start digoxin 0.125 mg daily for better rate control. Change Lovenox Eliquis 5 mg twice daily for stroke prophylaxis. 2-D echo showed mild left ventricle systolic dysfunction with EF 45%. Plan for outpatient cardioversion after 4 weeks of therapeutic anticoagulation. 2. Acute on chronic combined systolic and diastolic heart failure: Better compensated. Change Lasix to by mouth. 3. Hypertension: Better controlled 4. Hyperlipidemia: Continue statins 5. Diabetes mellitus type 2: Treat per IM Problems: Subjective Patient feeling better. Dyspnea improved. Objective Vital Signs Date Time Temp Pulse Resp B/P (MAP) Pulse Ox O2 Delivery O2 Flow Rate FiO2 09/17/17 09:50 97 Nasal Cannula 3.0 09/17/17 07:01 97.4 91 20 115/65 (82) Intake and Output 09/17/17 07:00 Intake Total 2040 ml Output Total 1750 ml Balance 290 ml Intake Oral 2040 ml Output Urine Total 1750 ml Abdomen: Soft, No tenderness Heart: Other (heart rate is irregular) Extremities: Other (trace edema) General: Alert, Oriented X3 HEENT: Atraumatic, PERRLA Lungs: Other (bilateral basal crepitations) Psych/Mental Status: Mood NL Review of Relevant I have reviewed the following items jerica (where applicable) has been applied. Labs Laboratory Tests Test 09/15/17 16:25 09/15/17 19:21 09/16/17 07:35 09/16/17 11:25 Glucose (Fingerstick) 196 mg/dL (70-99) 220 mg/dL (70-99) 87 mg/dL (70-99) 156 mg/dL (70-99) Test 09/16/17 16:19 09/16/17 19:39 09/17/17 06:17 09/17/17 07:33 Glucose (Fingerstick) 236 mg/dL (70-99) 231 mg/dL (70-99) 100 mg/dL (70-99) White Blood Count 8.6 x10^3/uL (4.0-11.0) Red Blood Count 3.96 x10^6/uL (3.50-5.40) Hemoglobin 11.9 g/dL (12.0-15.5) Hematocrit 37.5 % (36.0-47.0) Mean Corpuscular Volume 95 fL (79-100) Mean Corpuscular Hemoglobin 30 pg (25-35) Mean Corpuscular Hemoglobin Concent 32 g/dL (31-37) Red Cell Distribution Width 15.5 % (11.5-14.5) Platelet Count 246 x10^3/uL (140-400) Sodium Level 145 mmol/L (136-145) Potassium Level 3.9 mmol/L (3.5-5.1) Chloride Level 98 mmol/L (98-107) Carbon Dioxide Level 41 mmol/L (21-32) Anion Gap 6 (6-14) Blood Urea Nitrogen 14 mg/dL (7-20) Creatinine 0.9 mg/dL (0.6-1.0) Estimated GFR (Cockcroft-Gault) 61.7 Glucose Level 97 mg/dL (70-99) Calcium Level 9.1 mg/dL (8.5-10.1) Test 09/17/17 11:29 Glucose (Fingerstick) 238 mg/dL (70-99) Microbiology 09/14/17 Urine Culture - Final, Complete 09/14/17 Urine Culture Result 1 (ANITA) - Final, Complete Medications Current Medications Furosemide (Lasix) 40 mg 1X ONCE IVP Last administered on 09/14/17at 11:40; Start 09/14/17 at 11:45; Stop 09/14/17 at 11:46; Status DC Ondansetron HCl (Zofran) 4 mg PRN Q4HRS PRN IV NAUSEA/VOMITING; Start 09/14/17 at 12:00; Stop 09/15/17 at 11:59; Status DC Acetaminophen (Tylenol) 650 mg PRN Q4HRS PRN PO FEVER; Start 09/14/17 at 12:00 ; Stop 09/15/17 at 11:59; Status DC Albuterol/ Ipratropium (Duoneb) 3 ml RTQID NEB Last administered on 09/17/17at 09:47; Start 09/14/17 at 16:00 Furosemide (Lasix) 40 mg DAILY IVP Last administered on 09/17/17at 08:05; Start 09/15/17 at 09:00 Digoxin (Lanoxin) 500 mcg 1X ONCE IV Last administered on 09/14/17 14:19; Start 09/14/17 at 14:15; Stop 09/14/17 at 14:16; Status DC Cholestyramine Resin (Questran Light) 4 gm DAILY PO ; Start 09/15/17 at 09:00 Gabapentin (Neurontin) 300 mg BID PO Last administered on 09/17/17 08:04; Start 09/14/17 at 21:00 Glyburide (Diabeta) 10 mg BIDWMEALS PO Last administered on 09/17/17 08:04; Start 09/14/17 at 17:00 Insulin Detemir (Levemir) 25 units HS SQ Last administered on 09/16/17 20:10; Start 09/14/17 at 21:00 Albuterol Sulfate (Ventolin) 2.5 mg PRN Q4HRS PRN NEB SHORTNESS OF BREATH; Start 09/14/17 at 14:45 Atorvastatin Calcium (Lipitor) 40 mg QHS PO Last administered on 09/16/17at 20: 05; Start 09/14/17 at 21:00 Budesonide (Pulmicort) 0.5 mg RTBID NEB Last administered on 09/17/17 09:53; Start 09/14/17 at 20:00 Lisinopril (Prinivil) 40 mg DAILY PO ; Start 09/15/17 at 09:00; Status Future Hold Ceftriaxone Sodium 1 gm/ Sodium Chloride 50 ml @ 100 mls/hr Q24H IV ; Start at 14:45; Status UNV Ceftriaxone Sodium (Rocephin) 1 gm Q24H IVP Last administered on 09/16/17at 16: 44; Start 09/14/17 at 15:00 Enoxaparin Sodium (Lovenox 150mg Syringe) 150 mg Q12H SQ Last administered on 05:35; Start 09/14/17 at 17:00 Azithromycin 500 mg/Sodium Chloride 250 ml @ 250 mls/hr Q24H IV Last administered on 09/15/17at 18:27; Start 09/14/17 at 19:30; Stop 09/16/17 at 09:54 ; Status DC Prednisone (Prednisone) 20 mg DAILY PO Last administered on 09/17/17at 08:04; Start 09/15/17 at 09:00 Lactobacillus Rhamnosus (Culturelle) 1 cap BID PO Last administered on at 20:05; Start 09/14/17 at 21:00 Sodium Chloride (Saline Mist Nasal) 1 mario PRN Q1HR PRN NS NASAL CONGESTION Last administered on 09/14/17at 21:03; Start 09/14/17 at 20:15 Iohexol (Omnipaque 300 Mg/ml) 75 ml 1X ONCE IV Last administered on 09/15/17at 05:17; Start 09/15/17 at 03:00; Stop 09/15/17 at 03:41; Status DC Info (Do NOT chart on this entry -- for MONITORING) 1 each PRN DAILY PRN MC SEE COMMENTS; Start 09/15/17 at 03:15; Stop 09/17/17 at 03:15; Status DC Digoxin (Lanoxin) 500 mcg 1X ONCE IV Last administered on 09/15/17at 07:56; Start 09/15/17 at 08:00; Stop 09/15/17 at 08:02; Status DC Iohexol (Omnipaque 300 Mg/ml) 75 ml 1X ONCE IV ; Start 09/15/17 at 08:45; Stop 09/15/17 at 08:46; Status DC Metoprolol Tartrate (Lopressor) 12.5 mg Q6HRS PO Last administered on at 05:36; Start 09/15/17 at 09:40 Potassium Chloride (Klor-Con) 20 meq DAILYWBKFT PO Last administered on at 08:04; Start 09/15/17 at 09:45 Azithromycin (Zithromax) 500 mg DAILYWSUP PO Last administered on 09/16/17at 16: 44; Start 09/16/17 at 17:00 Active Scripts Active Reported Breo Ellipta 100-25 Mcg Inh (Fluticasone/Vilanterol) 1 Each Aer.pow.ba 1 Puff IH DAILY LAST DOSE GIVEN: DATE: TIME: NEXT DOSE DUE: DATE: TIME: Albuterol Sulfate Neb Soln (Albuterol Sulfate) 0.63 Mg/3 Ml Vial.neb 1 Vial NEB Q4HRS PRN LAST DOSE GIVEN: DATE: TIME: NEXT DOSE DUE: DATE: TIME: Lasix (Furosemide) 20 Mg Tablet 1 Tab PO DAILY LAST DOSE GIVEN: DATE: TIME: NEXT DOSE DUE: DATE: TIME: Levemir Flextouch (Insulin Detemir) 100 Unit/1 Ml Insuln.pen 25 Unit SQ HS LAST DOSE GIVEN: DATE: TIME: NEXT DOSE DUE: DATE: TIME: Gabapentin 300 Mg Capsule 300 Mg PO BID LAST DOSE GIVEN: DATE: TIME: NEXT DOSE DUE: DATE: TIME: Lisinopril 40 Mg Tablet 40 Mg PO DAILY LAST DOSE GIVEN: DATE: TIME: NEXT DOSE DUE: DATE: TIME: Atorvastatin Calcium 40 Mg Tablet 40 Mg PO QHS LAST DOSE GIVEN: DATE: TIME: NEXT DOSE DUE: DATE: TIME: Glyburide 5 Mg Tablet 10 Mg PO BIDWMEALS LAST DOSE GIVEN: DATE: TIME: NEXT DOSE DUE: DATE: TIME: Cholestyramine Light Packet (Cholestyramine/Aspartame) 4 Gm Powd.pack 4 Gm PO DAILY LAST DOSE GIVEN: DATE: TIME: NEXT DOSE DUE: DATE: TIME: Vitals/I & O Vital Sign - Last 24 Hours 09/16/17 09/16/17 09/16/17 09/16/17 12:50 15:29 18:12 18:16 Temp 97.7 Pulse 85 85 102 Resp 20 B/P (MAP) 117/70 117/70 134/73 (93) Pulse Ox 95 96 O2 Delivery Nasal Cannula Nasal Cannula O2 Flow Rate 3.0 2.0 09/16/17 09/16/17 09/16/17 09/16/17 20:00 20:41 23:50 23:52 Temp 97.8 Pulse 93 93 Resp 20 B/P (MAP) 128/62 128/62 (84) Pulse Ox 97 65 O2 Delivery Nasal Cannula Nasal Cannula Nasal Cannula O2 Flow Rate 2.0 3.5 4.0 09/17/17 09/17/17 09/17/17 09/17/17 05:36 05:42 07:01 09:50 Temp 97.4 Pulse 91 91 Resp 20 B/P (MAP) 115/65 115/65 (82) Pulse Ox 94 95 97 O2 Delivery Nasal Cannula Nasal Cannula Nasal Cannula O2 Flow Rate 3.0 2.0 3.0 Intake and Output 09/16/17 09/16/17 09/17/17 15:00 23:00 07:00 Intake Total 1320 ml 360 ml 360 ml Output Total 700 ml 500 ml 550 ml Balance 620 ml -140 ml -190 ml EDENILSON OLIVARES MD Sep 17, 2017 11:55
[2017-09-17] MEDS ORDERED: DIGOXIN IV 500 MCG/2 ML AMPUL. IV ONE (12:00)
[2017-09-17] MEDS: LACTOBACILLUS RHAMNOSUS GG 1 CAPSULE. PO SCH ×2 (12:18→20:58)
[2017-09-17 13:10] VITALS: BP 124/69
[2017-09-17 15:32] VITALS: BP 165/72
[2017-09-17] MEDS: cefTRIAXone IV Push 1 GM VIAL. IVP SCH (15:42)
[2017-09-17] MEDS: AZITHROMYCIN 250 MG TABLET. PO SCH (17:52)
[2017-09-17 19:00] VITALS: BP 129/74
[2017-09-17] MEDS: APIXABAN 5 MG TABLET. PO SCH (20:58)
[2017-09-17] MEDS: ATORVASTATIN CALCIUM 20 MG TABLET PO SCH (20:58)
[2017-09-17] MEDS: INSULIN DETEMIR 300 UNITS/3 ML INSULN.PEN. SQ SCH (21:06)
[2017-09-17 22:35] VITALS: BP 132/70
[2017-09-18] MEDS: IPRATRPIUM/ALBUTEROL 0.5/2.5MG 3 ML NEBU. NEB SCH ×2 (05:52→11:05)
[2017-09-18 05:54] LABS: BASO # 0.1 x10^3/uL (0.0-0.2); BASO % 1 % (0-3); EOS # 0.1 x10^3/uL (0.0-0.7); EOS % 1 % (0-3); HEMATOCRIT 36.9 % (36.0-47.0); HEMOGLOBIN 11.6 g/dL (12.0-15.5); LYMPH # 1.8 x10^3/uL (1.0-4.8); LYMPH % 23 % (24-48); MEAN CORPUSCULAR HEMOGLOBIN 30 pg (25-35); MEAN CORPUSCULAR HGB CONC 32 g/dL (31-37); MEAN CORPUSCULAR VOLUME 95 fL (79-100); MONO # 0.7 x10^3/uL (0.0-1.1); MONO % 9 % (0-9); NEUT # 5.2 x10^3uL (1.8-7.7); NEUT % 66 % (31-73); PLATELET COUNT 222 x10^3/uL (140-400); RED BLOOD COUNT 3.91 x10^6/uL (3.50-5.40); RED CELL DISTRIBUTION WIDTH 15.2 % (11.5-14.5); WHITE BLOOD COUNT 7.9 x10^3/uL (4.0-11.0)
[2017-09-18 06:05] LABS: ALBUMIN 2.9 g/dL (3.4-5.0); ALBUMIN/GLOBULIN RATIO 0.8 (1.0-1.7); CALCIUM 9.3 mg/dL (8.5-10.1); CREATININE 0.9 mg/dL (0.6-1.0); GFR 61.7; POTASSIUM 3.9 mmol/L (3.5-5.1); TOTAL BILIRUBIN 0.5 mg/dL (0.2-1.0); TOTAL PROTEIN 6.6 g/dL (6.4-8.2)
[2017-09-18 06:10] VITALS: BP 119/61
[2017-09-18] MEDS ORDERED: ACETAMINOPHEN 500 MG TABLET PO PRN ×2 (07:30→08:00)
[2017-09-18] MEDS: GABAPENTIN 300 MG CAPSULE. PO SCH (07:45)
[2017-09-18] MEDS: glyBURIDE 5 MG TABLET PO SCH (07:45)
[2017-09-18] MEDS: LACTOBACILLUS RHAMNOSUS GG 1 CAPSULE. PO SCH (07:46)
[2017-09-18] MEDS: APIXABAN 5 MG TABLET. PO SCH (07:46)
[2017-09-18] MEDS: POTASSIUM CHLORIDE 20 MEQ TABLET.ER. PO SCH (07:46)
[2017-09-18] MEDS: predniSONE 20 MG TABLET PO SCH (07:46)
[2017-09-18] MEDS: CHOLESTYRAMINE/ASPARTAME 4 GM PACKET PO SCH (07:49)
[2017-09-18] MEDS ORDERED: FUROSEMIDE 40 MG TABLET PO SCH (09:00)
[2017-09-18] MEDS ORDERED: DIGOXIN 125 MCG TABLET PO SCH (09:00)
--- NOTE | 2017-09-18 09:14 | PDOC ---
PROGRESS NOTES Assessment 1. Atrial fibrillation with rapid ventricular response: Rate controlled on Cardizem and digoxin. Eliquis for stroke prophylaxis. Plan for outpatient cardioversion after 4 weeks of therapeutic anticoagulation. 2. Acute on chronic combined systolic and diastolic heart failure: Compensated. Continue oral lasix. 3. Hypertension: controlled. 4. Hyperlipidemia: Continue statins 5. Diabetes mellitus type 2: Treat per IM Problems: Subjective "feeling better, ready to go home", denies chest pain, dyspnea, palpitations. Objective Vital Signs Date Time Temp Pulse Resp B/P (MAP) Pulse Ox O2 Delivery O2 Flow Rate FiO2 09/18/17 08:05 Nasal Cannula 2.0 09/18/17 07:46 91 119/61 09/18/17 06:10 97.5 20 95 Intake and Output 09/18/17 07:00 Intake Total 1270 ml Output Total 1600 ml Balance -330 ml Intake Oral 1270 ml Output Urine Total 1600 ml # Voids 2 Abdomen: Normal bowel sounds, Soft Heart: Other (irregular rate and rhythm, no gallops, clicks or rubs) Extremities: No cyanosis, Normal pulses General: Alert, Oriented X3, Cooperative, No acute distress HEENT: Atraumatic, EOMI Lungs: Other (minimally decreased bases, otherwise clear) Neuro: Normal speech Psych/Mental Status: Mental status NL, Mood NL Review of Relevant I have reviewed the following items jerica (where applicable) has been applied. Labs Laboratory Tests Test 09/16/17 11:25 09/16/17 16:19 09/16/17 19:39 09/17/17 06:17 Glucose (Fingerstick) 156 mg/dL (70-99) 236 mg/dL (70-99) 231 mg/dL (70-99) White Blood Count 8.6 x10^3/uL (4.0-11.0) Red Blood Count 3.96 x10^6/uL (3.50-5.40) Hemoglobin 11.9 g/dL (12.0-15.5) Hematocrit 37.5 % (36.0-47.0) Mean Corpuscular Volume 95 fL (79-100) Mean Corpuscular Hemoglobin 30 pg (25-35) Mean Corpuscular Hemoglobin Concent 32 g/dL (31-37) Red Cell Distribution Width 15.5 % (11.5-14.5) Platelet Count 246 x10^3/uL (140-400) Sodium Level 145 mmol/L (136-145) Potassium Level 3.9 mmol/L (3.5-5.1) Chloride Level 98 mmol/L (98-107) Carbon Dioxide Level 41 mmol/L (21-32) Anion Gap 6 (6-14) Blood Urea Nitrogen 14 mg/dL (7-20) Creatinine 0.9 mg/dL (0.6-1.0) Estimated GFR (Cockcroft-Gault) 61.7 Glucose Level 97 mg/dL (70-99) Calcium Level 9.1 mg/dL (8.5-10.1) Test 09/17/17 07:33 09/17/17 11:29 09/17/17 16:21 09/17/17 20:12 Glucose (Fingerstick) 100 mg/dL (70-99) 238 mg/dL (70-99) 243 mg/dL (70-99) 209 mg/dL (70-99) Test 09/18/17 05:42 09/18/17 07:31 White Blood Count 7.9 x10^3/uL (4.0-11.0) Red Blood Count 3.91 x10^6/uL (3.50-5.40) Hemoglobin 11.6 g/dL (12.0-15.5) Hematocrit 36.9 % (36.0-47.0) Mean Corpuscular Volume 95 fL (79-100) Mean Corpuscular Hemoglobin 30 pg (25-35) Mean Corpuscular Hemoglobin Concent 32 g/dL (31-37) Red Cell Distribution Width 15.2 % (11.5-14.5) Platelet Count 222 x10^3/uL (140-400) Neutrophils (%) (Auto) 66 % (31-73) Lymphocytes (%) (Auto) 23 % (24-48) Monocytes (%) (Auto) 9 % (0-9) Eosinophils (%) (Auto) 1 % (0-3) Basophils (%) (Auto) 1 % (0-3) Neutrophils # (Auto) 5.2 x10^3uL (1.8-7.7) Lymphocytes # (Auto) 1.8 x10^3/uL (1.0-4.8) Monocytes # (Auto) 0.7 x10^3/uL (0.0-1.1) Eosinophils # (Auto) 0.1 x10^3/uL (0.0-0.7) Basophils # (Auto) 0.1 x10^3/uL (0.0-0.2) Sodium Level 145 mmol/L (136-145) Potassium Level 3.9 mmol/L (3.5-5.1) Chloride Level 101 mmol/L (98-107) Carbon Dioxide Level 41 mmol/L (21-32) Anion Gap 3 (6-14) Blood Urea Nitrogen 15 mg/dL (7-20) Creatinine 0.9 mg/dL (0.6-1.0) Estimated GFR (Cockcroft-Gault) 61.7 BUN/Creatinine Ratio 17 (6-20) Glucose Level 94 mg/dL (70-99) Calcium Level 9.3 mg/dL (8.5-10.1) Total Bilirubin 0.5 mg/dL (0.2-1.0) Aspartate Amino Transf (AST/SGOT) 17 U/L (15-37) Alanine Aminotransferase (ALT/SGPT) 18 U/L (14-59) Alkaline Phosphatase 92 U/L (46-116) Total Protein 6.6 g/dL (6.4-8.2) Albumin 2.9 g/dL (3.4-5.0) Albumin/Globulin Ratio 0.8 (1.0-1.7) Glucose (Fingerstick) 80 mg/dL (70-99) Microbiology 09/14/17 Urine Culture - Final, Complete 09/14/17 Urine Culture Result 1 (ANITA) - Final, Complete Medications Current Medications Furosemide (Lasix) 40 mg 1X ONCE IVP Last administered on 09/14/17at 11:40; Start 09/14/17 at 11:45; Stop 09/14/17 at 11:46; Status DC Ondansetron HCl (Zofran) 4 mg PRN Q4HRS PRN IV NAUSEA/VOMITING; Start 09/14/17 at 12:00; Stop 09/15/17 at 11:59; Status DC Acetaminophen (Tylenol) 650 mg PRN Q4HRS PRN PO FEVER; Start 09/14/17 at 12:00 ; Stop 09/15/17 at 11:59; Status DC Albuterol/ Ipratropium (Duoneb) 3 ml RTQID NEB Last administered on 09/18/17 05:52; Start 09/14/17 at 16:00 Furosemide (Lasix) 40 mg DAILY IVP Last administered on 09/17/17at 08:05; Start 09/15/17 at 09:00; Stop 09/17/17 at 12:00; Status DC Digoxin (Lanoxin) 500 mcg 1X ONCE IV Last administered on 09/14/17at 14:19; Start 09/14/17 at 14:15; Stop 09/14/17 at 14:16; Status DC Cholestyramine Resin (Questran Light) 4 gm DAILY PO ; Start 09/15/17 at 09:00 Gabapentin (Neurontin) 300 mg BID PO Last administered on 09/18/17at 07:45; Start 09/14/17 at 21:00 Glyburide (Diabeta) 10 mg BIDWMEALS PO Last administered on 09/18/17at 07:45; Start 09/14/17 at 17:00 Insulin Detemir (Levemir) 25 units HS SQ Last administered on 09/17/17 21:06; Start 09/14/17 at 21:00 Albuterol Sulfate (Ventolin) 2.5 mg PRN Q4HRS PRN NEB SHORTNESS OF BREATH; Start 09/14/17 at 14:45 Atorvastatin Calcium (Lipitor) 40 mg QHS PO Last administered on 09/17/17 20: 58; Start 09/14/17 at 21:00 Budesonide (Pulmicort) 0.5 mg RTBID NEB Last administered on 09/17/17at 20:34; Start 09/14/17 at 20:00 Lisinopril (Prinivil) 40 mg DAILY PO ; Start 09/15/17 at 09:00; Stop 09/17/17 at 12:00; Status DC Ceftriaxone Sodium 1 gm/ Sodium Chloride 50 ml @ 100 mls/hr Q24H IV ; Start at 14:45; Status UNV Ceftriaxone Sodium (Rocephin) 1 gm Q24H IVP Last administered on 09/17/17at 15: 42; Start 09/14/17 at 15:00 Enoxaparin Sodium (Lovenox 150mg Syringe) 150 mg Q12H SQ Last administered on at 05:35; Start 09/14/17 at 17:00; Stop 09/17/17 at 12:00; Status DC Azithromycin 500 mg/Sodium Chloride 250 ml @ 250 mls/hr Q24H IV Last administered on 09/15/17at 18:27; Start 09/14/17 at 19:30; Stop 09/16/17 at 09:54 ; Status DC Prednisone (Prednisone) 20 mg DAILY PO Last administered on 09/18/17at 07:46; Start 09/15/17 at 09:00 Lactobacillus Rhamnosus (Culturelle) 1 cap BID PO Last administered on at 07:46; Start 09/14/17 at 21:00 Sodium Chloride (Saline Mist Nasal) 1 mario PRN Q1HR PRN NS NASAL CONGESTION Last administered on 09/14/17at 21:03; Start 09/14/17 at 20:15 Iohexol (Omnipaque 300 Mg/ml) 75 ml 1X ONCE IV Last administered on 09/15/17at 05:17; Start 09/15/17 at 03:00; Stop 09/15/17 at 03:41; Status DC Info (Do NOT chart on this entry -- for MONITORING) 1 each PRN DAILY PRN MC SEE COMMENTS; Start 09/15/17 at 03:15; Stop 09/17/17 at 03:15; Status DC Digoxin (Lanoxin) 500 mcg 1X ONCE IV Last administered on 09/15/17at 07:56; Start 09/15/17 at 08:00; Stop 09/15/17 at 08:02; Status DC Iohexol (Omnipaque 300 Mg/ml) 75 ml 1X ONCE IV ; Start 09/15/17 at 08:45; Stop 09/15/17 at 08:46; Status DC Metoprolol Tartrate (Lopressor) 12.5 mg Q6HRS PO Last administered on at 05:36; Start 09/15/17 at 09:40; Stop 09/17/17 at 12:00; Status DC Potassium Chloride (Klor-Con) 20 meq DAILYWBKFT PO Last administered on at 07:46; Start 09/15/17 at 09:45 Azithromycin (Zithromax) 500 mg DAILYWSUP PO Last administered on 09/17/17at 17: 52; Start 09/16/17 at 17:00 Diltiazem HCl (Cardizem 24hr Cd) 120 mg DAILY PO Last administered on at 07:45; Start 09/17/17 at 12:00 Apixaban (Eliquis) 5 mg BID PO Last administered on 09/18/17at 07:46; Start at 21:00 Furosemide (Lasix) 40 mg DAILY PO Last administered on 09/18/17at 07:46; Start 09/18/17 at 09:00 Digoxin (Lanoxin) 125 mcg DAILY PO Last administered on 09/18/17at 07:46; Start 09/18/17 at 09:00 Digoxin (Lanoxin) 500 mcg 1X ONCE IV Last administered on 09/17/17at 12:19; Start 09/17/17 at 12:00; Stop 09/17/17 at 12:02; Status DC Acetaminophen (Tylenol) 100 mg PRN Q4HRS PRN PO PAIN / TEMP Last administered on 09/18/17at 07:46; Start 09/18/17 at 07:30; Stop 09/18/17 at 07:51; Status DC Acetaminophen (Tylenol) 1,000 mg PRN Q4HRS PRN PO PAIN / TEMP; Start 09/18/17 at 08:00 Active Scripts Active Reported Breo Ellipta 100-25 Mcg Inh (Fluticasone/Vilanterol) 1 Each Aer.pow.ba 1 Puff IH DAILY LAST DOSE GIVEN: DATE: TIME: NEXT DOSE DUE: DATE: TIME: Albuterol Sulfate Neb Soln (Albuterol Sulfate) 0.63 Mg/3 Ml Vial.neb 1 Vial NEB Q4HRS PRN LAST DOSE GIVEN: DATE: TIME: NEXT DOSE DUE: DATE: TIME: Lasix (Furosemide) 20 Mg Tablet 1 Tab PO DAILY LAST DOSE GIVEN: DATE: TIME: NEXT DOSE DUE: DATE: TIME: Levemir Flextouch (Insulin Detemir) 100 Unit/1 Ml Insuln.pen 25 Unit SQ HS LAST DOSE GIVEN: DATE: TIME: NEXT DOSE DUE: DATE: TIME: Gabapentin 300 Mg Capsule 300 Mg PO BID LAST DOSE GIVEN: DATE: TIME: NEXT DOSE DUE: DATE: TIME: Lisinopril 40 Mg Tablet 40 Mg PO DAILY LAST DOSE GIVEN: DATE: TIME: NEXT DOSE DUE: DATE: TIME: Atorvastatin Calcium 40 Mg Tablet 40 Mg PO QHS LAST DOSE GIVEN: DATE: TIME: NEXT DOSE DUE: DATE: TIME: Glyburide 5 Mg Tablet 10 Mg PO BIDWMEALS LAST DOSE GIVEN: DATE: TIME: NEXT DOSE DUE: DATE: TIME: Cholestyramine Light Packet (Cholestyramine/Aspartame) 4 Gm Powd.pack 4 Gm PO DAILY LAST DOSE GIVEN: DATE: TIME: NEXT DOSE DUE: DATE: TIME: Vitals/I & O Vital Sign - Last 24 Hours 09/17/17 09/17/17 09/17/17 09/17/17 09:50 12:18 12:19 13:10 Temp 98.0 Pulse 91 91 104 Resp 20 B/P (MAP) 115/65 115/65 124/69 (87) Pulse Ox 97 94 O2 Delivery Nasal Cannula Nasal Cannula O2 Flow Rate 3.0 2.0 09/17/17 09/17/17 09/17/17 09/17/17 15:32 15:59 19:00 19:20 Temp 97.7 98.3 Pulse 93 74 Resp 20 18 B/P (MAP) 165/72 (103) 129/74 (92) Pulse Ox 94 96 96 O2 Delivery Nasal Cannula Nasal Cannula Nasal Cannula Nasal Cannula O2 Flow Rate 2.0 3.0 2.0 2.0 09/17/17 09/17/17 09/17/17 09/18/17 20:35 20:38 22:35 05:54 Temp 97.4 Pulse 87 Resp 20 B/P (MAP) 132/70 (90) Pulse Ox 96 96 91 O2 Delivery Nasal Cannula Nasal Cannula Nasal Cannula Nasal Cannula O2 Flow Rate 3.0 3.0 2.0 3.0 09/18/17 09/18/17 09/18/17 09/18/17 06:10 07:45 07:46 08:05 Temp 97.5 Pulse 91 91 91 Resp 20 B/P (MAP) 119/61 (80) 119/61 119/61 Pulse Ox 95 O2 Delivery Nasal Cannula Nasal Cannula O2 Flow Rate 2.0 2.0 Intake and Output 09/17/17 09/17/17 09/18/17 15:00 23:00 07:00 Intake Total 720 ml 250 ml 300 ml Output Total 1600 ml Balance 720 ml -1350 ml 300 ml AI PALENCIA APRN Sep 18, 2017 09:13
[2017-09-18 10:20] VITALS: BP 110/57
[2017-09-18] MEDS: BUDESONIDE 0.5 MG/2 ML NEBU NEB SCH (11:05)
[2017-09-18] MEDS ORDERED: POTA20TA4 PO (11:37)
[2017-09-18] MEDS ORDERED: DIGO125T PO (11:37)
[2017-09-18] MEDS ORDERED: DILT120C80 PO (11:37)
[2017-09-18] MEDS ORDERED: PRED5TAB PO (11:37)
[2017-09-18] MEDS ORDERED: APIX5TAB3 PO (11:37)
[2017-09-18] MEDS ORDERED: AZIT250T6 PO (11:37)
[2017-09-18] MEDS ORDERED: FURO40TA4 PO (11:37)
[2017-09-18] MEDS ORDERED: SODI44SP NS (11:37)
== END 2017-09-18 13:14 | disposition home health service (06) | DRG 291 ==
LOC: ER 09:56 → 1 SOUTH 11:50 → OBSVTOIN 13:29
PROVIDERS: ADMIT Family Medicine; ATTEND Family Medicine
DX: I13.0 Hypertensive heart and chronic kidney disease with heart failure and stage 1 through stage 4 chronic kidney disease, or unspecified chronic kidney disease (principal); I50.43 Acute on chronic combined systolic (congestive) and diastolic (congestive) heart failure; J18.9 Pneumonia, unspecified organism; E11.22 Type 2 diabetes mellitus with diabetic chronic kidney disease; E11.42 Type 2 diabetes mellitus with diabetic polyneuropathy; E11.51 Type 2 diabetes mellitus with diabetic peripheral angiopathy without gangrene; N18.3 Chronic kidney disease, stage 3 (moderate); Z68.43 Body mass index [BMI] 50.0-59.9, adult; J44.0 Chronic obstructive pulmonary disease with (acute) lower respiratory infection; I48.0 Paroxysmal atrial fibrillation; F41.9 Anxiety disorder, unspecified; E66.01 Morbid (severe) obesity due to excess calories; E78.5 Hyperlipidemia, unspecified; K58.9 Irritable bowel syndrome, unspecified; M81.0 Age-related osteoporosis without current pathological fracture; Z85.828 Personal history of other malignant neoplasm of skin; Z90.89 Acquired absence of other organs; Z90.710 Acquired absence of both cervix and uterus; Z87.891 Personal history of nicotine dependence; Z99.81 Dependence on supplemental oxygen; Z88.8 Allergy status to other drugs, medicaments and biological substances; Z88.1 Allergy status to other antibiotic agents; Z82.5 Family history of asthma and other chronic lower respiratory diseases; Z82.49 Family history of ischemic heart disease and other diseases of the circulatory system; Z79.899 Other long term (current) drug therapy; Z79.4 Long term (current) use of insulin; Z86.010 Personal history of colon polyps
CPT/HCPCS: 36415; 71046; 71275; 74176; 80048; 80053; 80061; 81001; 82550; 82947; 83735; 83880; 84443; 84484; 85025; 85027; 85379; 87086; 93005; 93306; 93970; 94640; 96374; G0378; G0379; J0456; J0696; J1160; J1650; J1815; J1940; J7050; J7512; J7620; J7626; Q9967; 97116; 99285-25